=== PATIENT | female | born 1950 | race African-American/Black ===

== ENCOUNTER 2021-03-26 22:39 | Emergency (ER) | payer MEDICARE, MEDICAID ==
[2021-03-26 23:50] LABS: Hemoglobin 13.1 g/dL (12.0-16.0); Mean Corpuscular HGB CONC 29.5 g/dL (32.0-36.0); Mean Corpuscular Hemoglobin 29.8 pg (27.0-31.0); Mean Corpuscular Volume 100.8 fL (78.0-98.0); Mean Platelet Volume 9.7 fL (7.4-10.4); Platelet Count 183 thou/uL (130-400); RBC Distribution Width 14.8 % (11.5-14.5); Red Blood Cell (RBC) Count 4.39 mill/uL (4.20-5.40)
[2021-03-27 00:14] LABS: ALT (SGPT) 9 U/L (8-55); AST (SGOT) 15 U/L (5-34); Albumin 4.5 g/dL (3.4-4.8); Alkaline Phosphatase 66 U/L (40-110); Anion Gap 20 mmol/L (10-20); BUN (Urea Nitrogen) 40 mg/dL (9.8-20.1); Bilirubin, Total 0.4 mg/dL (0.2-1.2); CK (CPK) 307 U/L (29-168); Calc. Creatinine Clearance 0 mL/min (70-130); Calcium 9.6 mg/dL (7.8-10.44); Carbon Dioxide 21 mmol/L (23-31); Chloride 104 mmol/L (98-107); Globulin 4.4 g/dL (2.4-3.5); Glucose 88 mg/dL (80-115); Potassium 4.3 mmol/L (3.5-5.1); Protein, Total 8.9 g/dL (5.8-8.1); Sodium 141 mmol/L (136-145)
[2021-03-27 00:33] LABS: #Basophils 0.2 thou/uL (0.0-0.2); #Eosinphils 0.9 thou/uL (0.0-0.7); #Lymphocytes 2.7 thou/uL (1.20-3.40); #Monocytes 0.7 thou/uL (0.11-0.59); #Neutrophils 5.6 thou/uL (1.40-6.50); %Basophils 1.7 % (0.0-1.0); %Eosinophils 8.7 % (0.0-10.0); %Monocytes 6.7 % (0.0-10.0); %Neutrophils 55.9 % (42.0-75.0); Platelet Morphology Comment Appears Adequate; RBC Morphology Normal
[2021-03-27 00:34] LABS: CKMB 0.7 ng/mL (0-6.6)
[2021-03-27 00:38] LABS: MDiff Complete? YES
[2021-03-27] MEDS ORDERED: Clindamycin 150 MG CAP ONE (00:38)
[2021-03-27] MEDS ORDERED: Furosemide 40 MG TAB ONE (00:38)
== END 2021-03-27 00:56 | disposition home or self-care (01) ==
LOC: MADERS 22:39
DX: I89.0 Lymphedema, not elsewhere classified (principal); L03.115 Cellulitis of right lower limb; I10 Essential (primary) hypertension; J42 Unspecified chronic bronchitis; Z79.899 Other long term (current) drug therapy
CPT/HCPCS: 80053; 82550; 82553; 83880; 85025; 87070; 87077; 87186; 87205; 99283

== ENCOUNTER 2023-03-10 15:45 | Emergency (ER) | payer MEDICARE, MEDICAID ==
[2023-03-10 17:12] LABS: #Basophils 0.1 thou/uL (0.0-0.2); #Eosinphils 0.5 thou/uL (0.0-0.7); #Monocytes 0.5 thou/uL (0.11-0.59); #Neutrophils 3.4 thou/uL (1.40-6.50); %Basophils 1.7 % (0.0-1.0); %Eosinophils 8.1 % (0.0-10.0); %Lymphocytes 30.1 % (21.0-51.0); %Monocytes 8.2 % (0.0-10.0); %Neutrophils 51.9 % (42.0-75.0); Hemoglobin 9.7 g/dL (12.0-16.0); Mean Corpuscular Hemoglobin 31.8 pg (27.0-31.0); Mean Corpuscular Volume 99.2 fl (78.0-98.0); Mean Platelet Volume 10.6 fL (7.4-10.4); Platelet Count 167 10x3/uL (130-400); RBC Distribution Width 15.1 % (11.5-14.5); Red Blood Cell (RBC) Count 3.06 mill/uL (4.20-5.40); White Blood Cell (WBC) Count 6.6 10x3/uL (4.8-10.8)
[2023-03-10 17:26] LABS: ALT (SGPT) Less than 7 U/L (8-55); AST (SGOT) 9 U/L (5-34); Alkaline Phosphatase 60 U/L (40-110); Anion Gap 14 mmol/L (10-20); BUN (Urea Nitrogen) 34 mg/dL (9.8-20.1); Bilirubin, Total 0.3 mg/dL (0.2-1.2); Calc. Creatinine Clearance 0 mL/min (70-130); Calcium 9.6 mg/dL (7.8-10.44); Carbon Dioxide 22 mmol/L (23-31); Chloride 107 mmol/L (98-107); Estimated GFR 29; Globulin 3.6 g/dL (2.4-3.5); Glucose 123 mg/dL (83-110); Magnesium 2.1 mg/dL (1.6-2.6); Potassium 4.4 mmol/L (3.5-5.1); Protein, Total 7.6 g/dL (5.8-8.1); Sodium 139 mmol/L (136-145)
== END 2023-03-10 17:55 | disposition home or self-care (01) ==
LOC: MADERS 15:45
DX: R79.89 Other specified abnormal findings of blood chemistry (principal); R94.4 Abnormal results of kidney function studies; E87.5 Hyperkalemia; I10 Essential (primary) hypertension; Z79.899 Other long term (current) drug therapy
CPT/HCPCS: 36415; 80053; 83735; 83880; 85025; 93005

== ENCOUNTER 2023-07-05 13:00 | Inpatient (IN) | payer MEDICARE, MEDICAID ==
[2023-07-05] MEDS: Oxybutynin 5 MG TAB PO SCH (20:43)
[2023-07-05] MEDS: levETIRAcetam 500 MG TAB PO SCH (20:44)
[2023-07-05] MEDS: Atorvastatin Calcium 40 MG TAB PO SCH (20:44)
[2023-07-06] MEDS ORDERED: Ipratropium/Albuterol 3 ML NEB NEB SCH (02:45)
[2023-07-06] MEDS: Aspirin Chewable 81 MG TAB PO SCH (08:42)
[2023-07-06] MEDS: Folic Acid 1 MG TAB PO SCH (08:42)
[2023-07-06] MEDS: Amlodipine 5 MG TAB PO SCH (08:42)
[2023-07-06] MEDS: Montelukast Sodium 10 mg Tablet PO SCH (08:43)
[2023-07-06] MEDS: Cyanocobalamin (Vitamin B-12) 1,000 MCG TAB PO SCH (08:43)
[2023-07-06] MEDS: Oxybutynin 5 MG TAB PO SCH ×2 (08:43→20:52)
[2023-07-06] MEDS: Multivit, Therapeutic 1 TAB PO SCH (08:43)
[2023-07-06 09:36] LABS: BUN (Urea Nitrogen) 11 mg/dL (9.8-20.1); Calc. Creatinine Clearance 90 mL/min (70-130); Calcium 9.5 mg/dL (7.6-10.4); Carbon Dioxide 23 mmol/L (23-31); Chloride 108 mmol/L (98-107); Estimated GFR 56; Glucose 90 mg/dL (83-110); Potassium 3.8 mmol/L (3.5-5.1); Sodium 143 mmol/L (136-145)
[2023-07-06 09:37] LABS: Anion Gap 16 mmol/L (10-20)
[2023-07-06 09:38] LABS: White Blood Cell (WBC) Count 7.9 10x3/uL (4.8-10.8)
[2023-07-06 09:39] LABS: Hematocrit 33.5 % (36.0-47.0); Hemoglobin 10.5 g/dL (12.0-16.0); Mean Corpuscular HGB CONC 31.3 g/dL (32.0-36.0); Mean Platelet Volume 10.1 fL (7.4-10.4); Platelet Count 173 10x3/uL (130-400); RBC Distribution Width 14.3 % (11.5-14.5); Red Blood Cell (RBC) Count 3.28 mill/uL (4.20-5.40)
[2023-07-06] MEDS: levETIRAcetam 500 MG TAB PO SCH ×2 (11:56→20:52)
[2023-07-06] MEDS: Ferrous Sulfate 325 MG TAB PO SCH (11:56)
[2023-07-06] MEDS: Polyethylene Glycol 3350 17 GM Packet PO PRN (20:52)
[2023-07-06] MEDS: Atorvastatin Calcium 40 MG TAB PO SCH (20:52)
[2023-07-07 05:22] LABS: Hematocrit 27.5 % (36.0-47.0); Hemoglobin 8.8 g/dL (12.0-16.0); Platelet Count 139 10x3/uL (130-400)
[2023-07-07] MEDS: Amlodipine 5 MG TAB PO SCH (08:15)
[2023-07-07] MEDS: Aspirin Chewable 81 MG TAB PO SCH (08:16)
[2023-07-07] MEDS: Ferrous Sulfate 325 MG TAB PO SCH (08:17)
[2023-07-07] MEDS: Cyanocobalamin (Vitamin B-12) 1,000 MCG TAB PO SCH (08:17)
[2023-07-07] MEDS: Multivit, Therapeutic 1 TAB PO SCH (08:17)
[2023-07-07] MEDS: Folic Acid 1 MG TAB PO SCH (08:17)
[2023-07-07] MEDS: Montelukast Sodium 10 mg Tablet PO SCH (08:17)
[2023-07-07] MEDS: Oxybutynin 5 MG TAB PO SCH ×2 (08:17→21:24)
[2023-07-07] MEDS: levETIRAcetam 500 MG TAB PO SCH ×2 (08:17→21:24)
[2023-07-07] MEDS: Emollient 15 oz bottle 450 ML, Triamcinolone Acetonide 200 MG TOP PRN (17:41)
[2023-07-07] MEDS: Senokot S 8.6-50 MG TAB PO PRN (21:24)
[2023-07-07] MEDS: Atorvastatin Calcium 40 MG TAB PO SCH (21:24)
[2023-07-08 05:08] LABS: Hematocrit 27.2 % (36.0-47.0); Hemoglobin 8.7 g/dL (12.0-16.0); Platelet Count 144 10x3/uL (130-400)
[2023-07-08] MEDS: Amlodipine 5 MG TAB PO SCH (09:16)
[2023-07-08] MEDS: Cyanocobalamin (Vitamin B-12) 1,000 MCG TAB PO SCH (09:16)
[2023-07-08] MEDS: Folic Acid 1 MG TAB PO SCH (09:16)
[2023-07-08] MEDS: Montelukast Sodium 10 mg Tablet PO SCH (09:16)
[2023-07-08] MEDS: Ferrous Sulfate 325 MG TAB PO SCH (09:16)
[2023-07-08] MEDS: Multivit, Therapeutic 1 TAB PO SCH (09:16)
[2023-07-08] MEDS: Oxybutynin 5 MG TAB PO SCH ×2 (09:16→21:28)
[2023-07-08] MEDS: Aspirin Chewable 81 MG TAB PO SCH (09:16)
[2023-07-08] MEDS: levETIRAcetam 500 MG TAB PO SCH ×2 (09:16→21:28)
[2023-07-08] MEDS: Atorvastatin Calcium 40 MG TAB PO SCH (21:28)
[2023-07-09] MEDS: Multivit, Therapeutic 1 TAB PO SCH (08:26)
[2023-07-09] MEDS: Folic Acid 1 MG TAB PO SCH (08:26)
[2023-07-09] MEDS: Aspirin Chewable 81 MG TAB PO SCH (08:26)
[2023-07-09] MEDS: Cyanocobalamin (Vitamin B-12) 1,000 MCG TAB PO SCH (08:26)
[2023-07-09] MEDS: levETIRAcetam 500 MG TAB PO SCH ×2 (08:26→20:26)
[2023-07-09] MEDS: Amlodipine 5 MG TAB PO SCH (08:26)
[2023-07-09] MEDS: Oxybutynin 5 MG TAB PO SCH ×2 (08:26→20:26)
[2023-07-09] MEDS: Montelukast Sodium 10 mg Tablet PO SCH (08:26)
[2023-07-09] MEDS: Ferrous Sulfate 325 MG TAB PO SCH (08:27)
[2023-07-09] MEDS: Atorvastatin Calcium 40 MG TAB PO SCH (20:26)
[2023-07-10] MEDS: Aspirin Chewable 81 MG TAB PO SCH (08:17)
[2023-07-10] MEDS: Polyethylene Glycol 3350 17 GM Packet PO PRN (08:17)
[2023-07-10] MEDS: Oxybutynin 5 MG TAB PO SCH ×2 (08:18→20:56)
[2023-07-10] MEDS: Amlodipine 5 MG TAB PO SCH (08:18)
[2023-07-10] MEDS: Senokot S 8.6-50 MG TAB PO PRN ×2 (08:18→20:56)
[2023-07-10] MEDS: Ferrous Sulfate 325 MG TAB PO SCH (08:18)
[2023-07-10] MEDS: Multivit, Therapeutic 1 TAB PO SCH (08:18)
[2023-07-10] MEDS: Folic Acid 1 MG TAB PO SCH (08:18)
[2023-07-10] MEDS: Cyanocobalamin (Vitamin B-12) 1,000 MCG TAB PO SCH (08:18)
[2023-07-10] MEDS: Montelukast Sodium 10 mg Tablet PO SCH (08:18)
[2023-07-10] MEDS: levETIRAcetam 500 MG TAB PO SCH ×2 (08:18→20:56)
[2023-07-10] MEDS: Acetaminophen 325 MG TAB PO PRN (16:16)
[2023-07-10] MEDS: Atorvastatin Calcium 40 MG TAB PO SCH (20:56)
[2023-07-11] MEDS: levETIRAcetam 500 MG TAB PO SCH ×2 (08:44→20:09)
[2023-07-11] MEDS: Aspirin Chewable 81 MG TAB PO SCH (08:44)
[2023-07-11] MEDS: Folic Acid 1 MG TAB PO SCH (08:44)
[2023-07-11] MEDS: Amlodipine 5 MG TAB PO SCH (08:44)
[2023-07-11] MEDS: Multivit, Therapeutic 1 TAB PO SCH (08:44)
[2023-07-11] MEDS: Cyanocobalamin (Vitamin B-12) 1,000 MCG TAB PO SCH (08:44)
[2023-07-11] MEDS: Ferrous Sulfate 325 MG TAB PO SCH (08:46)
[2023-07-11] MEDS: Montelukast Sodium 10 mg Tablet PO SCH (08:47)
[2023-07-11] MEDS: Oxybutynin 5 MG TAB PO SCH ×2 (08:47→20:09)
[2023-07-11] MEDS: Polyethylene Glycol 3350 17 GM Packet PO PRN (08:48)
[2023-07-11] MEDS: Senokot S 8.6-50 MG TAB PO PRN (20:09)
[2023-07-11] MEDS: Atorvastatin Calcium 40 MG TAB PO SCH (20:09)
[2023-07-11] MEDS: Emollient 15 oz bottle 450 ML, Triamcinolone Acetonide 200 MG TOP PRN (20:27)
[2023-07-12] MEDS: Polyethylene Glycol 3350 17 GM Packet PO PRN (09:17)
[2023-07-12] MEDS: levETIRAcetam 500 MG TAB PO SCH ×2 (09:18→20:22)
[2023-07-12] MEDS: Ferrous Gluconate 324 MG TAB PO SCH (09:18)
[2023-07-12] MEDS: Senokot S 8.6-50 MG TAB PO PRN (09:18)
[2023-07-12] MEDS: Folic Acid 1 MG TAB PO SCH (09:18)
[2023-07-12] MEDS: Cyanocobalamin (Vitamin B-12) 1,000 MCG TAB PO SCH (09:18)
[2023-07-12] MEDS: Aspirin Chewable 81 MG TAB PO SCH (09:19)
[2023-07-12] MEDS: Multivit, Therapeutic 1 TAB PO SCH (09:19)
[2023-07-12] MEDS: Oxybutynin 5 MG TAB PO SCH ×2 (09:19→20:22)
[2023-07-12] MEDS: Montelukast Sodium 10 mg Tablet PO SCH (09:19)
[2023-07-12] MEDS: Amlodipine 5 MG TAB PO SCH (09:19)
[2023-07-12] MEDS: Atorvastatin Calcium 40 MG TAB PO SCH (20:22)
[2023-07-13] MEDS: levETIRAcetam 500 MG TAB PO SCH ×2 (08:08→20:29)
[2023-07-13] MEDS: Ferrous Gluconate 324 MG TAB PO SCH (08:08)
[2023-07-13] MEDS: Montelukast Sodium 10 mg Tablet PO SCH (08:08)
[2023-07-13] MEDS: Multivit, Therapeutic 1 TAB PO SCH (08:08)
[2023-07-13] MEDS: Aspirin Chewable 81 MG TAB PO SCH (08:08)
[2023-07-13] MEDS: Folic Acid 1 MG TAB PO SCH (08:08)
[2023-07-13] MEDS: Amlodipine 5 MG TAB PO SCH (08:09)
[2023-07-13] MEDS: Cyanocobalamin (Vitamin B-12) 1,000 MCG TAB PO SCH (08:09)
[2023-07-13] MEDS: Oxybutynin 5 MG TAB PO SCH ×2 (08:09→20:30)
[2023-07-13] MEDS: Atorvastatin Calcium 40 MG TAB PO SCH (20:29)
[2023-07-14 05:33] LABS: #Basophils 0.1 thou/uL (0.0-0.2); #Eosinphils 0.6 thou/uL (0.0-0.7); #Lymphocytes 2.8 thou/uL (1.20-3.40); #Monocytes 0.6 thou/uL (0.11-0.59); #Neutrophils 3.2 thou/uL (1.40-6.50); %Basophils 1.6 % (0.0-1.0); %Eosinophils 8.7 % (0.0-10.0); %Lymphocytes 38.3 % (21.0-51.0); %Monocytes 8.2 % (0.0-10.0); %Neutrophils 43.2 % (42.0-75.0); Hematocrit 28.2 % (36.0-47.0); Hemoglobin 8.8 g/dL (12.0-16.0); Mean Corpuscular HGB CONC 31.3 g/dL (32.0-36.0); Mean Corpuscular Hemoglobin 32.3 pg (27.0-31.0); Mean Corpuscular Volume 102.9 fl (78.0-98.0); Mean Platelet Volume 9.2 fL (7.4-10.4); Platelet Count 168 10x3/uL (130-400); RBC Distribution Width 15.7 % (11.5-14.5); Red Blood Cell (RBC) Count 2.74 mill/uL (4.20-5.40); White Blood Cell (WBC) Count 7.4 10x3/uL (4.8-10.8)
[2023-07-14 05:46] LABS: ALT (SGPT) 9 U/L (8-55); AST (SGOT) 16 U/L (5-34); Albumin 3.3 g/dL (3.4-4.8); Alkaline Phosphatase 71 U/L (40-110); Anion Gap 13 mmol/L (10-20); BUN (Urea Nitrogen) 24 mg/dL (9.8-20.1); Bilirubin, Total 0.3 mg/dL (0.2-1.2); Calc. Creatinine Clearance 59 mL/min (70-130); Calcium 8.9 mg/dL (7.8-10.44); Carbon Dioxide 23 mmol/L (23-31); Chloride 109 mmol/L (98-107); Estimated GFR 34; Glucose 100 mg/dL (83-110); Potassium 4.8 mmol/L (3.5-5.1); Protein, Total 6.3 g/dL (5.8-8.1); Sodium 140 mmol/L (136-145)
[2023-07-14] MEDS: Acetaminophen 325 MG TAB PO PRN (08:58)
[2023-07-14] MEDS: Amlodipine 5 MG TAB PO SCH (08:58)
[2023-07-14] MEDS: Aspirin Chewable 81 MG TAB PO SCH (08:58)
[2023-07-14] MEDS: Polyethylene Glycol 3350 17 GM Packet PO PRN (08:58)
[2023-07-14] MEDS: Ferrous Gluconate 324 MG TAB PO SCH (08:59)
[2023-07-14] MEDS: levETIRAcetam 500 MG TAB PO SCH ×2 (08:59→21:06)
[2023-07-14] MEDS: Emollient 15 oz bottle 450 ML, Triamcinolone Acetonide 200 MG TOP PRN (08:59)
[2023-07-14] MEDS: Oxybutynin 5 MG TAB PO SCH ×2 (08:59→21:06)
[2023-07-14] MEDS: Multivit, Therapeutic 1 TAB PO SCH (08:59)
[2023-07-14] MEDS: Montelukast Sodium 10 mg Tablet PO SCH (08:59)
[2023-07-14] MEDS: Cyanocobalamin (Vitamin B-12) 1,000 MCG TAB PO SCH (08:59)
[2023-07-14] MEDS: Folic Acid 1 MG TAB PO SCH (08:59)
[2023-07-14] MEDS: Senokot S 8.6-50 MG TAB PO PRN (12:10)
[2023-07-14] MEDS: Atorvastatin Calcium 40 MG TAB PO SCH (21:05)
[2023-07-15 05:28] LABS: Hematocrit 28.2 % (36.0-47.0); Hemoglobin 8.9 g/dL (12.0-16.0); Platelet Count 177 10x3/uL (130-400)
[2023-07-15] MEDS: levETIRAcetam 500 MG TAB PO SCH ×2 (08:23→21:18)
[2023-07-15] MEDS: Multivit, Therapeutic 1 TAB PO SCH (08:23)
[2023-07-15] MEDS: Amlodipine 5 MG TAB PO SCH (08:23)
[2023-07-15] MEDS: Aspirin Chewable 81 MG TAB PO SCH (08:23)
[2023-07-15] MEDS: Montelukast Sodium 10 mg Tablet PO SCH (08:24)
[2023-07-15] MEDS: Ferrous Gluconate 324 MG TAB PO SCH (08:24)
[2023-07-15] MEDS: Cyanocobalamin (Vitamin B-12) 1,000 MCG TAB PO SCH (08:24)
[2023-07-15] MEDS: Folic Acid 1 MG TAB PO SCH (08:24)
[2023-07-15] MEDS: Oxybutynin 5 MG TAB PO SCH ×2 (08:24→21:18)
[2023-07-15] MEDS: Polyethylene Glycol 3350 17 GM Packet PO PRN (11:44)
[2023-07-15] MEDS: Atorvastatin Calcium 40 MG TAB PO SCH (21:18)
[2023-07-16] MEDS: Cyanocobalamin (Vitamin B-12) 1,000 MCG TAB PO SCH (09:12)
[2023-07-16] MEDS: Aspirin Chewable 81 MG TAB PO SCH (09:12)
[2023-07-16] MEDS: Amlodipine 5 MG TAB PO SCH (09:12)
[2023-07-16] MEDS: Montelukast Sodium 10 mg Tablet PO SCH (09:12)
[2023-07-16] MEDS: Ferrous Gluconate 324 MG TAB PO SCH (09:12)
[2023-07-16] MEDS: Multivit, Therapeutic 1 TAB PO SCH (09:12)
[2023-07-16] MEDS: Oxybutynin 5 MG TAB PO SCH ×2 (09:13→20:31)
[2023-07-16] MEDS: levETIRAcetam 500 MG TAB PO SCH ×2 (09:13→20:31)
[2023-07-16] MEDS: Folic Acid 1 MG TAB PO SCH (09:13)
[2023-07-16] MEDS: Atorvastatin Calcium 40 MG TAB PO SCH (20:31)
[2023-07-17 05:58] LABS: Anion Gap 13 mmol/L (10-20); BUN (Urea Nitrogen) 40 mg/dL (9.8-20.1); Calc. Creatinine Clearance 48 mL/min (70-130); Calcium 8.6 mg/dL (7.8-10.44); Carbon Dioxide 23 mmol/L (23-31); Chloride 108 mmol/L (98-107); Estimated GFR 28; Glucose 92 mg/dL (83-110); Potassium 5.5 mmol/L (3.5-5.1); Sodium 138 mmol/L (136-145)
[2023-07-17] MEDS ORDERED: Sodium Chloride 0.9% 1,000 ML IV SCH (09:00)
[2023-07-17] MEDS: Montelukast Sodium 10 mg Tablet PO SCH (09:05)
[2023-07-17] MEDS: levETIRAcetam 500 MG TAB PO SCH ×2 (09:05→20:45)
[2023-07-17] MEDS: Aspirin Chewable 81 MG TAB PO SCH (09:05)
[2023-07-17] MEDS: Multivit, Therapeutic 1 TAB PO SCH (09:05)
[2023-07-17] MEDS: Oxybutynin 5 MG TAB PO SCH ×2 (09:05→20:45)
[2023-07-17] MEDS: Amlodipine 5 MG TAB PO SCH (09:05)
[2023-07-17] MEDS: Ferrous Gluconate 324 MG TAB PO SCH (09:05)
[2023-07-17] MEDS: Cyanocobalamin (Vitamin B-12) 1,000 MCG TAB PO SCH (09:05)
[2023-07-17] MEDS: Folic Acid 1 MG TAB PO SCH (09:06)
[2023-07-17] MEDS: Atorvastatin Calcium 40 MG TAB PO SCH (20:45)
[2023-07-18 05:32] LABS: Anion Gap 11 mmol/L (10-20); BUN (Urea Nitrogen) 37 mg/dL (9.8-20.1); Calc. Creatinine Clearance 61 mL/min (70-130); Calcium 8.5 mg/dL (7.8-10.44); Carbon Dioxide 22 mmol/L (23-31); Chloride 110 mmol/L (98-107); Estimated GFR 38; Glucose 96 mg/dL (83-110); Potassium 5.1 mmol/L (3.5-5.1); Sodium 138 mmol/L (136-145)
[2023-07-18] MEDS: Ferrous Gluconate 324 MG TAB PO SCH (09:38)
[2023-07-18] MEDS: Folic Acid 1 MG TAB PO SCH (09:39)
[2023-07-18] MEDS: Aspirin Chewable 81 MG TAB PO SCH (09:39)
[2023-07-18] MEDS: levETIRAcetam 500 MG TAB PO SCH ×2 (09:39→19:59)
[2023-07-18] MEDS: Cyanocobalamin (Vitamin B-12) 1,000 MCG TAB PO SCH (09:39)
[2023-07-18] MEDS: Amlodipine 5 MG TAB PO SCH (09:39)
[2023-07-18] MEDS: Oxybutynin 5 MG TAB PO SCH ×2 (09:39→19:59)
[2023-07-18] MEDS: Multivit, Therapeutic 1 TAB PO SCH (09:39)
[2023-07-18] MEDS: Montelukast Sodium 10 mg Tablet PO SCH (09:39)
[2023-07-18] MEDS: Atorvastatin Calcium 40 MG TAB PO SCH (19:59)
[2023-07-19] MEDS: Ipratropium/Albuterol 3 ML NEB NEB PRN (08:17)
[2023-07-19] MEDS: Aspirin Chewable 81 MG TAB PO SCH (08:18)
[2023-07-19] MEDS: Amlodipine 5 MG TAB PO SCH (08:18)
[2023-07-19] MEDS: Ferrous Gluconate 324 MG TAB PO SCH (08:18)
[2023-07-19] MEDS: levETIRAcetam 500 MG TAB PO SCH ×2 (08:18→20:12)
[2023-07-19] MEDS: Folic Acid 1 MG TAB PO SCH (08:18)
[2023-07-19] MEDS: Cyanocobalamin (Vitamin B-12) 1,000 MCG TAB PO SCH (08:20)
[2023-07-19] MEDS: Multivit, Therapeutic 1 TAB PO SCH (08:20)
[2023-07-19] MEDS: Oxybutynin 5 MG TAB PO SCH ×2 (08:20→20:12)
[2023-07-19] MEDS: Montelukast Sodium 10 mg Tablet PO SCH (08:20)
[2023-07-19] MEDS: Atorvastatin Calcium 40 MG TAB PO SCH (20:12)
[2023-07-19] MEDS: Emollient 15 oz bottle 450 ML, Triamcinolone Acetonide 200 MG TOP PRN (20:13)
[2023-07-20] MEDS: Multivit, Therapeutic 1 TAB PO SCH (08:25)
[2023-07-20] MEDS: Cyanocobalamin (Vitamin B-12) 1,000 MCG TAB PO SCH (08:25)
[2023-07-20] MEDS: Aspirin Chewable 81 MG TAB PO SCH (08:25)
[2023-07-20] MEDS: Oxybutynin 5 MG TAB PO SCH ×2 (08:25→21:51)
[2023-07-20] MEDS: levETIRAcetam 500 MG TAB PO SCH ×2 (08:25→21:52)
[2023-07-20] MEDS: Amlodipine 5 MG TAB PO SCH (08:25)
[2023-07-20] MEDS: Folic Acid 1 MG TAB PO SCH (08:25)
[2023-07-20] MEDS: Montelukast Sodium 10 mg Tablet PO SCH (08:25)
[2023-07-20] MEDS: Ferrous Gluconate 324 MG TAB PO SCH (08:25)
[2023-07-20] MEDS: Emollient 15 oz bottle 450 ML, Triamcinolone Acetonide 200 MG TOP PRN (08:26)
[2023-07-20] MEDS: Atorvastatin Calcium 40 MG TAB PO SCH (21:51)
[2023-07-21] MEDS: Amlodipine 5 MG TAB PO SCH (08:28)
[2023-07-21] MEDS: Oxybutynin 5 MG TAB PO SCH ×2 (08:34→20:47)
[2023-07-21] MEDS: levETIRAcetam 500 MG TAB PO SCH ×2 (08:34→20:47)
[2023-07-21] MEDS: Ferrous Gluconate 324 MG TAB PO SCH (08:34)
[2023-07-21] MEDS: Aspirin Chewable 81 MG TAB PO SCH (08:34)
[2023-07-21] MEDS: Montelukast Sodium 10 mg Tablet PO SCH (08:34)
[2023-07-21] MEDS: Cyanocobalamin (Vitamin B-12) 1,000 MCG TAB PO SCH (08:34)
[2023-07-21] MEDS: Multivit, Therapeutic 1 TAB PO SCH (08:34)
[2023-07-21] MEDS: Folic Acid 1 MG TAB PO SCH (08:34)
[2023-07-21] MEDS: Atorvastatin Calcium 40 MG TAB PO SCH (20:47)
[2023-07-22] MEDS: Acetaminophen 325 MG TAB PO PRN (07:12)
[2023-07-22] MEDS: Montelukast Sodium 10 mg Tablet PO SCH (08:33)
[2023-07-22] MEDS: levETIRAcetam 500 MG TAB PO SCH ×2 (08:33→20:16)
[2023-07-22] MEDS: Multivit, Therapeutic 1 TAB PO SCH (08:33)
[2023-07-22] MEDS: Cyanocobalamin (Vitamin B-12) 1,000 MCG TAB PO SCH (08:33)
[2023-07-22] MEDS: Amlodipine 5 MG TAB PO SCH (08:33)
[2023-07-22] MEDS: Ferrous Gluconate 324 MG TAB PO SCH (08:33)
[2023-07-22] MEDS: Aspirin Chewable 81 MG TAB PO SCH (08:33)
[2023-07-22] MEDS: Folic Acid 1 MG TAB PO SCH (08:33)
[2023-07-22] MEDS: Oxybutynin 5 MG TAB PO SCH ×2 (08:33→20:16)
[2023-07-22] MEDS: Atorvastatin Calcium 40 MG TAB PO SCH (20:16)
[2023-07-23] MEDS: Acetaminophen 325 MG TAB PO PRN ×2 (08:36→21:27)
[2023-07-23] MEDS: Ferrous Gluconate 324 MG TAB PO SCH (08:36)
[2023-07-23] MEDS: Oxybutynin 5 MG TAB PO SCH ×2 (08:36→21:27)
[2023-07-23] MEDS: Amlodipine 5 MG TAB PO SCH (08:36)
[2023-07-23] MEDS: Aspirin Chewable 81 MG TAB PO SCH (08:36)
[2023-07-23] MEDS: levETIRAcetam 500 MG TAB PO SCH ×2 (08:36→21:27)
[2023-07-23] MEDS: Cyanocobalamin (Vitamin B-12) 1,000 MCG TAB PO SCH (08:37)
[2023-07-23] MEDS: Montelukast Sodium 10 mg Tablet PO SCH (08:37)
[2023-07-23] MEDS: Multivit, Therapeutic 1 TAB PO SCH (08:37)
[2023-07-23] MEDS: Folic Acid 1 MG TAB PO SCH (08:37)
[2023-07-23] MEDS: Atorvastatin Calcium 40 MG TAB PO SCH (21:27)
[2023-07-24] MEDS: Amlodipine 5 MG TAB PO SCH (08:32)
[2023-07-24] MEDS: Multivit, Therapeutic 1 TAB PO SCH (08:32)
[2023-07-24] MEDS: Ferrous Gluconate 324 MG TAB PO SCH (08:32)
[2023-07-24] MEDS: levETIRAcetam 500 MG TAB PO SCH ×2 (08:32→21:28)
[2023-07-24] MEDS: Folic Acid 1 MG TAB PO SCH (08:33)
[2023-07-24] MEDS: Acetaminophen 325 MG TAB PO PRN ×2 (08:33→21:28)
[2023-07-24] MEDS: Montelukast Sodium 10 mg Tablet PO SCH (08:33)
[2023-07-24] MEDS: Oxybutynin 5 MG TAB PO SCH ×2 (08:33→21:28)
[2023-07-24] MEDS: Aspirin Chewable 81 MG TAB PO SCH (08:33)
[2023-07-24] MEDS: Cyanocobalamin (Vitamin B-12) 1,000 MCG TAB PO SCH (08:33)
[2023-07-24] MEDS: Atorvastatin Calcium 40 MG TAB PO SCH (21:28)
[2023-07-25] MEDS: Montelukast Sodium 10 mg Tablet PO SCH (08:36)
[2023-07-25] MEDS: Cyanocobalamin (Vitamin B-12) 1,000 MCG TAB PO SCH (08:36)
[2023-07-25] MEDS: Folic Acid 1 MG TAB PO SCH (08:37)
[2023-07-25] MEDS: Multivit, Therapeutic 1 TAB PO SCH (08:37)
[2023-07-25] MEDS: Oxybutynin 5 MG TAB PO SCH ×2 (08:37→21:19)
[2023-07-25] MEDS: Amlodipine 5 MG TAB PO SCH (08:37)
[2023-07-25] MEDS: levETIRAcetam 500 MG TAB PO SCH ×2 (08:37→21:19)
[2023-07-25] MEDS: Ferrous Gluconate 324 MG TAB PO SCH (08:37)
[2023-07-25] MEDS: Aspirin Chewable 81 MG TAB PO SCH (08:37)
[2023-07-25] MEDS: Atorvastatin Calcium 40 MG TAB PO SCH (21:19)
[2023-07-25] MEDS: Acetaminophen 325 MG TAB PO PRN (21:20)
[2023-07-26] MEDS: Emollient 15 oz bottle 450 ML, Triamcinolone Acetonide 200 MG TOP PRN (08:08)
[2023-07-26] MEDS: Loperamide HCl 2 MG CAP PO PRN (08:09)
[2023-07-26] MEDS: levETIRAcetam 500 MG TAB PO SCH ×2 (08:09→20:33)
[2023-07-26] MEDS: Montelukast Sodium 10 mg Tablet PO SCH (08:09)
[2023-07-26] MEDS: Amlodipine 5 MG TAB PO SCH (08:09)
[2023-07-26] MEDS: Multivit, Therapeutic 1 TAB PO SCH (08:09)
[2023-07-26] MEDS: Cyanocobalamin (Vitamin B-12) 1,000 MCG TAB PO SCH (08:09)
[2023-07-26] MEDS: Aspirin Chewable 81 MG TAB PO SCH (08:09)
[2023-07-26] MEDS: Ferrous Gluconate 324 MG TAB PO SCH (08:10)
[2023-07-26] MEDS: Oxybutynin 5 MG TAB PO SCH ×2 (08:10→20:34)
[2023-07-26] MEDS: Saccharomyces boulardii 250 MG CAP PO SCH (08:10)
[2023-07-26] MEDS: Folic Acid 1 MG TAB PO SCH (08:10)
[2023-07-26] MEDS: Atorvastatin Calcium 40 MG TAB PO SCH (20:34)
[2023-07-26] MEDS: Acetaminophen 325 MG TAB PO PRN (20:34)
[2023-07-27] MEDS: Folic Acid 1 MG TAB PO SCH (08:27)
[2023-07-27] MEDS: Multivit, Therapeutic 1 TAB PO SCH (08:27)
[2023-07-27] MEDS: Oxybutynin 5 MG TAB PO SCH ×2 (08:27→20:24)
[2023-07-27] MEDS: Saccharomyces boulardii 250 MG CAP PO SCH (08:27)
[2023-07-27] MEDS: Amlodipine 5 MG TAB PO SCH (08:27)
[2023-07-27] MEDS: Aspirin Chewable 81 MG TAB PO SCH (08:27)
[2023-07-27] MEDS: Ferrous Gluconate 324 MG TAB PO SCH (08:27)
[2023-07-27] MEDS: Montelukast Sodium 10 mg Tablet PO SCH (08:27)
[2023-07-27] MEDS: Cyanocobalamin (Vitamin B-12) 1,000 MCG TAB PO SCH (08:27)
[2023-07-27] MEDS: levETIRAcetam 500 MG TAB PO SCH ×2 (08:28→20:24)
[2023-07-27] MEDS: Acetaminophen 325 MG TAB PO PRN (08:28)
[2023-07-27] MEDS: Atorvastatin Calcium 40 MG TAB PO SCH (20:24)
[2023-07-28] MEDS: Ipratropium/Albuterol 3 ML NEB NEB PRN ×2 (07:14→14:08)
[2023-07-28] MEDS: levETIRAcetam 500 MG TAB PO SCH ×2 (08:00→20:12)
[2023-07-28] MEDS: Folic Acid 1 MG TAB PO SCH (08:00)
[2023-07-28] MEDS: Ferrous Gluconate 324 MG TAB PO SCH (08:01)
[2023-07-28] MEDS: Aspirin Chewable 81 MG TAB PO SCH (08:01)
[2023-07-28] MEDS: Oxybutynin 5 MG TAB PO SCH ×2 (08:01→20:12)
[2023-07-28] MEDS: Amlodipine 5 MG TAB PO SCH (08:01)
[2023-07-28] MEDS: Cyanocobalamin (Vitamin B-12) 1,000 MCG TAB PO SCH (08:01)
[2023-07-28] MEDS: Multivit, Therapeutic 1 TAB PO SCH (08:01)
[2023-07-28] MEDS: Montelukast Sodium 10 mg Tablet PO SCH (08:01)
[2023-07-28] MEDS: Saccharomyces boulardii 250 MG CAP PO SCH (08:09)
[2023-07-28] MEDS: Atorvastatin Calcium 40 MG TAB PO SCH (20:12)
[2023-07-29] MEDS: Ipratropium/Albuterol 3 ML NEB NEB PRN ×3 (01:27→23:03)
[2023-07-29] MEDS: Multivit, Therapeutic 1 TAB PO SCH (08:29)
[2023-07-29] MEDS: Amlodipine 5 MG TAB PO SCH (08:29)
[2023-07-29] MEDS: Montelukast Sodium 10 mg Tablet PO SCH (08:29)
[2023-07-29] MEDS: levETIRAcetam 500 MG TAB PO SCH ×2 (08:29→20:25)
[2023-07-29] MEDS: Saccharomyces boulardii 250 MG CAP PO SCH (08:29)
[2023-07-29] MEDS: Aspirin Chewable 81 MG TAB PO SCH (08:29)
[2023-07-29] MEDS: Cyanocobalamin (Vitamin B-12) 1,000 MCG TAB PO SCH (08:30)
[2023-07-29] MEDS: Ferrous Gluconate 324 MG TAB PO SCH (08:30)
[2023-07-29] MEDS: Oxybutynin 5 MG TAB PO SCH ×2 (08:30→20:25)
[2023-07-29] MEDS: Folic Acid 1 MG TAB PO SCH (08:30)
[2023-07-29] MEDS: Atorvastatin Calcium 40 MG TAB PO SCH (20:25)
[2023-07-30] MEDS: Ipratropium/Albuterol 3 ML NEB NEB PRN (05:32)
[2023-07-30] MEDS: Cyanocobalamin (Vitamin B-12) 1,000 MCG TAB PO SCH (08:15)
[2023-07-30] MEDS: Folic Acid 1 MG TAB PO SCH (08:15)
[2023-07-30] MEDS: Aspirin Chewable 81 MG TAB PO SCH (08:15)
[2023-07-30] MEDS: Montelukast Sodium 10 mg Tablet PO SCH (08:15)
[2023-07-30] MEDS: Ferrous Gluconate 324 MG TAB PO SCH (08:15)
[2023-07-30] MEDS: Oxybutynin 5 MG TAB PO SCH ×2 (08:15→20:31)
[2023-07-30] MEDS: levETIRAcetam 500 MG TAB PO SCH ×2 (08:15→20:31)
[2023-07-30] MEDS: Amlodipine 5 MG TAB PO SCH (08:15)
[2023-07-30] MEDS: Saccharomyces boulardii 250 MG CAP PO SCH (08:15)
[2023-07-30] MEDS: Multivit, Therapeutic 1 TAB PO SCH (08:15)
[2023-07-30] MEDS: Atorvastatin Calcium 40 MG TAB PO SCH (20:31)
[2023-07-31] MEDS: Ipratropium/Albuterol 3 ML NEB NEB PRN ×3 (05:56→18:15)
[2023-07-31] MEDS: Saccharomyces boulardii 250 MG CAP PO SCH (08:28)
[2023-07-31] MEDS: Aspirin Chewable 81 MG TAB PO SCH (08:28)
[2023-07-31] MEDS: Montelukast Sodium 10 mg Tablet PO SCH (08:28)
[2023-07-31] MEDS: Folic Acid 1 MG TAB PO SCH (08:28)
[2023-07-31] MEDS: Multivit, Therapeutic 1 TAB PO SCH (08:28)
[2023-07-31] MEDS: levETIRAcetam 500 MG TAB PO SCH ×2 (08:28→20:15)
[2023-07-31] MEDS: Oxybutynin 5 MG TAB PO SCH ×2 (08:29→20:15)
[2023-07-31] MEDS: Cyanocobalamin (Vitamin B-12) 1,000 MCG TAB PO SCH (08:29)
[2023-07-31] MEDS: Amlodipine 5 MG TAB PO SCH (08:29)
[2023-07-31] MEDS: Ferrous Gluconate 324 MG TAB PO SCH (08:29)
[2023-07-31] MEDS: Atorvastatin Calcium 40 MG TAB PO SCH (20:15)
[2023-08-01] MEDS: Amlodipine 5 MG TAB PO SCH (08:30)
[2023-08-01] MEDS: Saccharomyces boulardii 250 MG CAP PO SCH (08:30)
[2023-08-01] MEDS: Multivit, Therapeutic 1 TAB PO SCH (08:30)
[2023-08-01] MEDS: Montelukast Sodium 10 mg Tablet PO SCH (08:30)
[2023-08-01] MEDS: Oxybutynin 5 MG TAB PO SCH ×2 (08:30→20:15)
[2023-08-01] MEDS: Cyanocobalamin (Vitamin B-12) 1,000 MCG TAB PO SCH (08:30)
[2023-08-01] MEDS: levETIRAcetam 500 MG TAB PO SCH ×2 (08:30→20:15)
[2023-08-01] MEDS: Ferrous Gluconate 324 MG TAB PO SCH (08:30)
[2023-08-01] MEDS: Folic Acid 1 MG TAB PO SCH (08:30)
[2023-08-01] MEDS: Aspirin Chewable 81 MG TAB PO SCH (08:30)
[2023-08-01 09:57] VITALS: BMI 46.1
[2023-08-01] MEDS: Loperamide HCl 2 MG CAP PO PRN (10:39)
[2023-08-01] MEDS: Atorvastatin Calcium 40 MG TAB PO SCH (20:15)
[2023-08-02] MEDS: Ipratropium/Albuterol 3 ML NEB NEB PRN (07:15)
[2023-08-02] MEDS: Folic Acid 1 MG TAB PO SCH (08:07)
[2023-08-02] MEDS: Amlodipine 5 MG TAB PO SCH (08:07)
[2023-08-02] MEDS: levETIRAcetam 500 MG TAB PO SCH ×2 (08:07→20:14)
[2023-08-02] MEDS: Multivit, Therapeutic 1 TAB PO SCH (08:07)
[2023-08-02] MEDS: Montelukast Sodium 10 mg Tablet PO SCH (08:07)
[2023-08-02] MEDS: Aspirin Chewable 81 MG TAB PO SCH (08:07)
[2023-08-02] MEDS: Ferrous Gluconate 324 MG TAB PO SCH (08:07)
[2023-08-02] MEDS: Oxybutynin 5 MG TAB PO SCH ×2 (08:07→20:14)
[2023-08-02] MEDS: Cyanocobalamin (Vitamin B-12) 1,000 MCG TAB PO SCH (08:07)
[2023-08-02] MEDS: Acetaminophen 325 MG TAB PO PRN (08:08)
[2023-08-02] MEDS: Saccharomyces boulardii 250 MG CAP PO SCH (08:08)
[2023-08-02] MEDS: Atorvastatin Calcium 40 MG TAB PO SCH (20:14)
[2023-08-03] MEDS: Ipratropium/Albuterol 3 ML NEB NEB PRN (07:56)
[2023-08-03] MEDS: Aspirin Chewable 81 MG TAB PO SCH (08:08)
[2023-08-03] MEDS: Montelukast Sodium 10 mg Tablet PO SCH (08:08)
[2023-08-03] MEDS: Multivit, Therapeutic 1 TAB PO SCH (08:09)
[2023-08-03] MEDS: Ferrous Gluconate 324 MG TAB PO SCH (08:09)
[2023-08-03] MEDS: Oxybutynin 5 MG TAB PO SCH (08:09)
[2023-08-03] MEDS: Acetaminophen 325 MG TAB PO PRN (08:09)
[2023-08-03] MEDS: Cyanocobalamin (Vitamin B-12) 1,000 MCG TAB PO SCH (08:09)
[2023-08-03] MEDS: Folic Acid 1 MG TAB PO SCH (08:09)
[2023-08-03] MEDS: levETIRAcetam 500 MG TAB PO SCH (08:09)
[2023-08-03] MEDS: Amlodipine 5 MG TAB PO SCH (08:09)
[2023-08-03 17:46] VITALS: BP 163/79; TEMP 98.3
== END 2023-08-03 17:44 | disposition home health service (06) | DRG 948 ==
LOC: MADMS 15:17 → UNDOADMIN 15:17
PROVIDERS: ADMIT Family Medicine; ATTEND Family Medicine
DX: R53.81 Other malaise (principal); J45.901 Unspecified asthma with (acute) exacerbation; Z68.42 Body mass index [BMI] 45.0-49.9, adult; N18.30 Chronic kidney disease, stage 3 unspecified; I65.29 Occlusion and stenosis of unspecified carotid artery; E66.01 Morbid (severe) obesity due to excess calories; R56.9 Unspecified convulsions; D63.1 Anemia in chronic kidney disease; I12.9 Hypertensive chronic kidney disease with stage 1 through stage 4 chronic kidney disease, or unspecified chronic kidney disease; Z98.890 Other specified postprocedural states; Z87.891 Personal history of nicotine dependence; Z79.82 Long term (current) use of aspirin; Z79.899 Other long term (current) drug therapy; Z95.0 Presence of cardiac pacemaker; Z86.73 Personal history of transient ischemic attack (TIA), and cerebral infarction without residual deficits
CPT/HCPCS: 36415; 71045; 80048; 80053; 80177; 82565; 83880; 85014; 85018; 85025; 85027; 85049; 94640; J1650; J3301; J7050; J7620

== ENCOUNTER 2023-12-04 11:56 | Emergency (ER) | payer MEDICARE, OTHER ==
[2023-12-04 14:12] LABS: Bilirubin Small (Negative); Blood, Urine Negative (Negative); Clarity Slightly Cloudy (Clear); Glucose, Urine (Dipstick) Negative (Negative); Ketone, Urine Trace mg/dL (Negative); Leukocyte Small (Negative); Nitrite Negative (Negative); Protein, Urine (Dipstick) Negative (Neg-Trace); Specific Gravity, Urine 1.015 (1.005-1.030); Urobilinogen 0.2 mg/dL (Less than 2); pH, Urine 5.5 (5.0-9.0)
[2023-12-04 14:16] LABS: ALT (SGPT) Less than 7 U/L (8-55); AST (SGOT) 13 U/L (5-34); Albumin 4.3 g/dL (3.4-4.8); Alkaline Phosphatase 78 U/L (40-110); Anion Gap 26 mmol/L (10-20); Bilirubin, Total 0.7 mg/dL (0.2-1.2); Calc. Creatinine Clearance 0 mL/min (70-130); Calcium 10.1 mg/dL (7.8-10.44); Carbon Dioxide 19 mmol/L (23-31); Chloride 98 mmol/L (98-107); Estimated GFR 11; Globulin 4.6 g/dL (2.4-3.5); Glucose 96 mg/dL (83-110); Magnesium 1.8 mg/dL (1.6-2.6); Potassium 5.3 mmol/L (3.5-5.1); Protein, Total 8.9 g/dL (5.8-8.1); Sodium 138 mmol/L (136-145)
[2023-12-04 14:20] LABS: Hematocrit 36.8 % (36.0-47.0); Hemoglobin 11.3 g/dL (12.0-16.0); Mean Corpuscular HGB CONC 30.8 g/dL (32.0-36.0); Mean Corpuscular Hemoglobin 30.4 pg (27.0-31.0); Mean Corpuscular Volume 98.8 fl (78.0-98.0); Mean Platelet Volume 9.4 fL (7.4-10.4); Platelet Count 174 10x3/uL (130-400); RBC Distribution Width 13.3 % (11.5-14.5); Red Blood Cell (RBC) Count 3.73 mill/uL (4.20-5.40); White Blood Cell (WBC) Count 7.6 10x3/uL (4.8-10.8)
[2023-12-04 14:28] LABS: Bacteria/HPF 2+ HPF (None Seen); CAUTI Indications for Culture Alt mental st,lethar; RBC/HPF 0-3 HPF (0-3)
[2023-12-04 14:29] LABS: Urine Culture Reflex No No
[2023-12-04 14:45] LABS: Band 2 % (5-11); Eosinophils 3 % (0-10); Lymphocytes 15 % (21-51); MDiff Complete? YES; Monocytes 6 % (0-10); Neutrophil 74 % (42-75); Platelet Adequacy Comment Appears Adequate
[2023-12-04 15:13] LABS: BUN (Urea Nitrogen) 115 mg/dL (9.8-20.1)
[2023-12-04] MEDS ORDERED: Sodium Chloride 0.9% 100 ML ONE (15:41)
[2023-12-04] MEDS ORDERED: Sodium Chloride 0.9% 1,000 ML ONE (15:41)
[2023-12-04] MEDS ORDERED: cefTRIAXone (ROCEPHIN) 1 GM VIAL ONE (15:41)
[2023-12-04] MEDS ORDERED: Dextrose 50% Abboject 50 ML SYRINGE ONE (15:41)
[2023-12-04] MEDS ORDERED: Insulin Regular 300 UNITS/3 ML VIAL ONE (15:41)
[2023-12-04] MEDS ORDERED: Dextrose 5 % And 0.9 % NaCl 1,000 ML ONE (17:18)
[2023-12-05 02:18] LABS: Anion Gap 19 mmol/L (10-20); BUN (Urea Nitrogen) 116 mg/dL (9.8-20.1); Calc. Creatinine Clearance 0 mL/min (70-130); Calcium 9.5 mg/dL (7.8-10.44); Carbon Dioxide 20 mmol/L (23-31); Chloride 105 mmol/L (98-107); Estimated GFR 16; Glucose 135 mg/dL (83-110); Potassium 4.2 mmol/L (3.5-5.1); Sodium 140 mmol/L (136-145)
[2023-12-05] MEDS ORDERED: Dextrose 5 % And 0.9 % NaCl 1,000 ML ONE (03:35)
[2023-12-05 09:22] LABS: Troponin I 0.014 ng/mL (< 0.028)
== END 2023-12-05 10:33 | disposition short-term general hospital (02) ==
LOC: MADERS 11:56
DX: R41.82 Altered mental status, unspecified (principal); N17.9 Acute kidney failure, unspecified; N39.0 Urinary tract infection, site not specified; E87.5 Hyperkalemia; I10 Essential (primary) hypertension; Z87.891 Personal history of nicotine dependence
CPT/HCPCS: 36416; 70450; 80048; 80053; 81001; 82140; 83735; 84443; 84484; 85025; 93005; J0696; J1815; J3490; J7042; J7050; J7999

== ENCOUNTER 2024-05-10 17:38 | Emergency (ER) | payer MEDICARE, MEDICAID ==
[2024-05-10] MEDS ORDERED: Lactated Ringer's 1,000 ML ONE (18:06)
[2024-05-10 18:51] LABS: ALT (SGPT) Less than 7 U/L (8-55); AST (SGOT) 11 U/L (5-34); Albumin 3.8 g/dL (3.4-4.8); Alkaline Phosphatase 41 U/L (40-110); Anion Gap 15 mmol/L (10-20); BUN (Urea Nitrogen) 93 mg/dL (9.8-20.1); Bilirubin, Total 0.2 mg/dL (0.2-1.2); CK (CPK) 91 U/L (29-168); Calc. Creatinine Clearance 0 mL/min (70-130); Calcium 9.1 mg/dL (7.8-10.44); Carbon Dioxide 16 mmol/L (23-31); Chloride 115 mmol/L (98-107); Estimated GFR 12; Globulin 3.4 g/dL (2.4-3.5); Glucose 89 mg/dL (83-110); Magnesium 2.5 mg/dL (1.6-2.6); Protein, Total 7.2 g/dL (5.8-8.1); Sodium 139 mmol/L (136-145)
[2024-05-10 19:03] LABS: #Basophils 0.1 thou/uL (0.0-0.2); #Eosinphils 0.3 thou/uL (0.0-0.7); #Monocytes 0.5 thou/uL (0.11-0.59); #Neutrophils 2.6 thou/uL (1.40-6.50); %Basophils 1.4 % (0.0-1.0); %Eosinophils 5.6 % (0.0-10.0); %Lymphocytes 36.5 % (21.0-51.0); %Monocytes 9.1 % (0.0-10.0); %Neutrophils 47.4 % (42.0-75.0); Hematocrit 24.1 % (36.0-47.0); Hemoglobin 7.2 g/dL (12.0-16.0); Mean Corpuscular Hemoglobin 30.3 pg (27.0-31.0); Mean Corpuscular Volume 100.9 fl (78.0-98.0); Mean Platelet Volume 6.9 fL (7.4-10.4); Platelet Count 126 10x3/uL (130-400); Potassium 6.8 mmol/L (3.5-5.1); RBC Distribution Width 13.6 % (11.5-14.5); Red Blood Cell (RBC) Count 2.39 mill/uL (4.20-5.40); White Blood Cell (WBC) Count 5.4 10x3/uL (4.8-10.8)
[2024-05-10] MEDS ORDERED: Dextrose 50% Abboject 50 ML SYRINGE ONE (19:31)
[2024-05-10] MEDS ORDERED: Sodium Polystyrene Sulfonate 15 GM (60 mL) BOT ONE (19:31)
[2024-05-10] MEDS ORDERED: Furosemide 20 MG (2 mL) VIAL ONE (19:31)
[2024-05-10] MEDS ORDERED: Insulin Regular, Human 100 UNIT/ML 10 ML VIAL ONE (19:32)
[2024-05-10] MEDS ORDERED: Calcium Gluc 4.6 MEQ/10 ML (100 MG/ML) ONE (19:32)
[2024-05-10] MEDS ORDERED: Sodium Bicarb 50 MEQ/50 ML Abboject 8.4% SYRINGE ONE (19:41)
== END 2024-05-10 20:42 | disposition short-term general hospital (02) ==
LOC: MADERS 17:38
DX: N17.9 Acute kidney failure, unspecified (principal); D64.9 Anemia, unspecified; E87.5 Hyperkalemia; I13.0 Hypertensive heart and chronic kidney disease with heart failure and stage 1 through stage 4 chronic kidney disease, or unspecified chronic kidney disease; I50.9 Heart failure, unspecified; N18.9 Chronic kidney disease, unspecified; Z87.891 Personal history of nicotine dependence; Z79.899 Other long term (current) drug therapy
CPT/HCPCS: 71045; 80053; 82550; 83735; 83880; 85025; 86850; 86900; 86901; 93005; 94760; 96361; 96365; 96375; J0612; J1815; J1940; J7120; J7999

== ENCOUNTER 2025-05-24 14:53 | Inpatient (IN) | payer MEDICARE, MEDICAID ==
[2025-05-24] MEDS ORDERED: Albuterol 200 PUFF (6.7GM INHALER) INH PRN (17:35)
[2025-05-24] MEDS: Acetaminophen 325 MG TAB PO PRN (20:32)
[2025-05-24] MEDS: Torsemide 20 MG TAB PO SCH (20:33)
[2025-05-24] MEDS: levETIRAcetam 500 MG TAB PO SCH (20:34)
[2025-05-24] MEDS: Oxybutynin 5 MG TAB PO SCH (20:34)
[2025-05-24] MEDS: Apixaban 5 MG TAB PO SCH (20:34)
[2025-05-25 06:47] LABS: Anisocytosis SLIGHT = 6-15 cells (100X) (0-5/hpf); Hematocrit 23.1 % (36.0-47.0); Hemoglobin 6.9 g/dL (12.0-16.0); MDiff Complete? YES; Macrocytosis SLIGHT = 6-15 cells (100X) (0-5/hpf); Mean Corpuscular Hemoglobin 30.9 pg (27.0-31.0); Mean Corpuscular Volume 102.8 fl (78.0-98.0); Platelet Adequacy Comment Appears Adequate; Platelet Count 263 10x3/uL (130-400); Red Blood Cell (RBC) Count 2.24 mill/uL (4.20-5.40); Schistocytes SLIGHT = 2-5 cells (100X) (0-1/hpf); White Blood Cell (WBC) Count 8.9 10x3/uL (4.8-10.8)
[2025-05-25 06:50] LABS: ALT (SGPT) Less than 4 U/L (Less than 34); AST (SGOT) 7 U/L (11-34); Albumin 2.4 g/dL (3.1-4.5); Alkaline Phosphatase 47 U/L (40-110); Anion Gap 13 mmol/L (10-20); BUN (Urea Nitrogen) 22 mg/dL (9.8-20.1); Bilirubin, Total 0.2 mg/dL (0.3-1.2); Calc. Creatinine Clearance 48 mL/min (70-130); Calcium 8.1 mg/dL (7.8-10.44); Carbon Dioxide 21 mmol/L (23-31); Chloride 111 mmol/L (98-107); Globulin 4.4 g/dL (2.4-3.5); Glucose 92 mg/dL (83-110); Potassium 4.5 mmol/L (3.5-5.1); Sodium 140 mmol/L (136-145)
[2025-05-25] MEDS: NIFEdipine XL 30 MG ER.TAB PO SCH (08:27)
[2025-05-25 15:16] VITALS: BMI 38.8
[2025-05-26 05:28] LABS: Hematocrit 24.6 % (36.0-47.0); Hemoglobin 7.4 g/dL (12.0-16.0); MDiff Complete? YES; Mean Corpuscular Hemoglobin 30.4 pg (27.0-31.0); Mean Corpuscular Volume 100.5 fl (78.0-98.0); Platelet Count 298 10x3/uL (130-400); Red Blood Cell (RBC) Count 2.44 mill/uL (4.20-5.40); White Blood Cell (WBC) Count 7.7 10x3/uL (4.8-10.8)
[2025-05-31] MEDS: Apixaban 5 MG TAB PO SCH ×2 (08:39→20:07)
[2025-06-02 06:24] LABS: Hematocrit 24.7 % (36.0-47.0); Hemoglobin 7.6 g/dL (12.0-16.0); Platelet Count 294 10x3/uL (130-400)
[2025-06-02 06:36] LABS: Anion Gap 16 mmol/L (10-20); Calc. Creatinine Clearance 36 mL/min (70-130); Calcium 9.4 mg/dL (7.8-10.44); Carbon Dioxide 26 mmol/L (23-31); Chloride 103 mmol/L (98-107); Glucose 94 mg/dL (83-110); Potassium 3.6 mmol/L (3.5-5.1); Sodium 141 mmol/L (136-145)
[2025-06-02 08:31] LABS: BUN (Urea Nitrogen) 127 mg/dL (9.8-20.1)
[2025-06-03 05:06] LABS: Calc. Creatinine Clearance 40.0 mL/min (70-130)
[2025-06-03 05:29] LABS: BUN (Urea Nitrogen) 136.0 mg/dL (9.8-20.1)
[2025-06-03] MEDS: Torsemide 20 MG TAB PO SCH (09:17)
[2025-06-10 05:32] LABS: Hematocrit 26.2 % (36.0-47.0); Hemoglobin 8.1 g/dL (12.0-16.0); Mean Corpuscular Hemoglobin 31.0 pg (27.0-31.0); Mean Corpuscular Volume 100.8 fl (78.0-98.0); Platelet Count 180 10x3/uL (130-400); Red Blood Cell (RBC) Count 2.60 mill/uL (4.20-5.40); White Blood Cell (WBC) Count 5.2 10x3/uL (4.8-10.8)
[2025-06-10 05:42] LABS: Anion Gap 13 mmol/L (10-20); BUN (Urea Nitrogen) 90 mg/dL (9.8-20.1); Calc. Creatinine Clearance 44 mL/min (70-130); Calcium 9.0 mg/dL (7.8-10.44); Carbon Dioxide 23 mmol/L (23-31); Chloride 111 mmol/L (98-107); Glucose 100 mg/dL (83-110); Potassium 4.2 mmol/L (3.5-5.1); Sodium 143 mmol/L (136-145)
[2025-06-10 08:01] VITALS: BMI 33.0
[2025-06-10] MEDS: Torsemide 20 MG TAB PO SCH (20:04)
[2025-06-11] MEDS: NIFEdipine XL 30 MG ER.TAB PO SCH (08:24)
[2025-06-13 07:43] VITALS: BP 108/56; TEMP 97.9
== END 2025-06-13 11:45 | disposition home or self-care (01) | DRG 945 ==
LOC: MADMS 16:33
PROVIDERS: ADMIT Family Medicine; ATTEND Family Medicine
PROC: F07Z9ZZ Gait Training/Functional Ambulation Treatment (ICD-10-PCS; principal; 2025-05-24)
PROC: 30233N1 Transfusion of Nonautologous Red Blood Cells into Peripheral Vein, Percutaneous Approach (ICD-10-PCS; 2025-05-25)
DX: R53.81 Other malaise (principal); I82.622 Acute embolism and thrombosis of deep veins of left upper extremity; L03.115 Cellulitis of right lower limb; I89.0 Lymphedema, not elsewhere classified; I12.9 Hypertensive chronic kidney disease with stage 1 through stage 4 chronic kidney disease, or unspecified chronic kidney disease; G40.909 Epilepsy, unspecified, not intractable, without status epilepticus; E87.5 Hyperkalemia; R26.89 Other abnormalities of gait and mobility; D64.9 Anemia, unspecified; N18.32 Chronic kidney disease, stage 3b; Z98.890 Other specified postprocedural states; Z95.0 Presence of cardiac pacemaker; Z79.51 Long term (current) use of inhaled steroids; Z79.01 Long term (current) use of anticoagulants; Z91.018 Allergy to other foods
CPT/HCPCS: 36415; 36430; 80048; 80053; 82565; 84520; 85014; 85018; 85025; 85027; 85049; 86850; 86900; 86901; 97602; P9016